=== PATIENT | male | born 1960 | race Caucasian/White ===

== ENCOUNTER 2020-01-22 10:51 | Outpatient (CLI) | payer OTHER ==
--- NOTE | 2020-01-22 11:54 | SLEEP CARE CONSULTATION ---
Information from patient questionnaire entered by Kassandra Izaguirre. I have reviewed and concur with the information entered by Kassandra Izaguirre. This document represents the service I personally performed and the decisions made by me, Laina Martinez, RN, MSN, HEMODIALYSIS TECHNICIAN. History of Present Illness Service Date and Time: 01/22/2020 1051 Reason for Visit: New patient, Previously diagnosed sleep apnea (mild AHI - 7), sleep apnea on CPAP therapy Chief Complaint: reports: Other (follow up to referral - new to area about 7 months and here to establish care) Duration of Symptoms: 10 years Usual bedtime: 8:30 pm Time it takes to fall asleep: 30 mins Snores at night: Yes (without CPAP ) Observed to quit breathing while asleep: No Sleeps alone due to snoring: No Number of times waking at night: 1 Reasons for waking at night: reports: Pain (back pain -intermittent ), Other (position change ) Toss, Turn, or Twitch while sleeping: No Recalls having dreams: No Usually gets out of bed at: 6 am Feels refreshed in the morning: Yes Morning headache: No Sleepy or fatigued during the day: Yes (rarely / once every few months ) Ever fallen asleep while driving: No Takes day naps: Yes (sometimes on days off ) Dreams during day naps: No Prior sleep studies: Yes Year and Where: 2012 [facility] - Parasomnia Symptoms Ever been unable to move upon waking from sleep: No Walks in sleep: No Talks in sleep: No Ever acted out dreams in sleep: No Ever felt weak in the knees when startled or emotional: No Bothered by creepy, crawly, restless sensations in legs: No Problems with memory or concentration: No CPAP Compliance Data - Data Reviewed with Patient Average duration of nightly device use: 8.5 Compliance rate %: 92.8 (180 days) Current pressure setting (cmH2O): 7 Humidity settin Heated hose settin Average residual AHI: 7.5 Central apnea: 1.8 Obstructive apnea: 1.7 Hypopnea: 4.0 Average large leak: 0 Subjective Patient concerns: reports: other (increased noise of device disturbing spouse ). denies: aerophagia, mask discomfort, air blowing in eyes, mask leak noise, condensation in mask/hose, nasal congestion, dry mouth, nose, throat, epistaxis Observed to snore while using device: Yes (rare) Current pressure setting perceived as: comfortable On therapy, patient: reports: sleeping better, awakening more refreshed, being more awake and alert during the day, more rested overall. denies: drowsiness while driving Initial [place] Sleepiness Scale score: 3 (in 2020) Past Medical History Past Medical History: reports: GERD Social History The patient's occupation is a [employer] PROVID[employer]. Patient is and lives in [place]. Have you smoked in the past 12 months: No Alcohol use: Yes Alcohol amount and frequency: 1-2 glasses of wine nightly Caffeine use: Yes Caffeine amount and frequency: 2 cups in morning Family History Family history of sleep disordered breathing: Yes Family Hx Sleep Apnea: Mother: Sleep apnea - Treated, Sibling: Sleep apnea - Treated Allergies and Home Medications Known drug allergies: No Home medication list reviewed: Yes Allergy and home medication list: Omeprazole 20mg daily Review of Systems Weight gain over past 5 years: 5 Cardiovascular: denies: high blood pressure, palpitations, chest pain, irregular heart rate or pulse, leg or foot swelling, have to sleep sitting up, other Respiratory: denies: shortness of breath, wheeze, sputum production, chronic cough, other Gastrointestinal: reports: heartburn. denies: difficulty swallowing, nausea, vomitting, diarrhea, abdominal pain, other Urinary: denies: incontinence, frequency, urgency, impotence, other Neurological: denies: headaches, seizure, head trauma, disorientation, speech dysfunction, gait or balance problems, fainting or unconsciousness, other Psychiatric: denies: Attention Deficit Hyperactivity, anxiety, depression, mood disorder, claustrophobia, other Ear/Nose/Throat: denies: nasal congestion, sinus problems, nose bleeds, dry mouth/throat, hoarseness, injury to nose, tonsillectomy, wisdom teeth removed, other Endocrine: denies: thyroid disease, history of goiter, sluggishness, too hot or cold, excessive thirst, increased appetite, increased urination, unexplained weakness, other Musculoskeletal: reports: joint pain (hands with yard work ), back pain (intermittent). denies: neck pain, joint swelling, muscle pain or cramping, mobility problems, other Immunologic: denies: sneezing, rash, itching, allergies to food or environment, other Physical Exam Heart Rate: 80 O2 Saturation: 97 Height: 5 ft 5 in Weight: 185 lb 9.6 oz Body Mass Index: 30.9 BMI Classification: Obese Neck circumference: 17.25 HEENT: No craniofacial malformation Nostrils: patent to airflow Turbinates: normal Septum: midline Mouth and throat: narrow oropharynx Soft palate: long Hard palate: normal Uvula visualization: 0% Mallampati Class IV Tongue: normal in size Chin and jaw: normal size and position Heart: regular rate and rhythm Lungs: clear bilaterally Extremities: no edema or clubbing Impression and Plan 1. Obstructive Sleep Apnea-Hypopnea Syndrome, mild as previously diagnosed in 2013 in [place]. He has good treatment compliance and slightly elevated residual apnea. On CPAP therapy, the patient has better sleep quality and is more rested overall and he is pleased with benefit of treatment. The patients pressure will be changed to autoCPAP 8-9 cmH20 For elevation of residual AHI. Patient advised to contact me if pressure change is uncomfortable so that it can be adjusted. Goals for apnea control discussed. He also needs a updated device due to increased noise of machine disturbing spouse sleep. Since his CPAP is over 7 years old and of reasonable use so I will update his device and transfer to DME of choice. Discharge staff will inform him of his DME choices. After further discussion, it was noted that he did not go to a sleep center for initial evaluation of his apnea but instead saw his PCP. If documentation of medical visit prior to sleep study can not be obtained by DME or does not meet protocol of DME , he may need to repeat sleep study to obtain CPAP supplies. A sleep order was written in case needed. His physical exam of long soft palate and Mallapatti IV visualization with his obesity continues to show risk of apnea. Currently patients BMI is 30.9 obesity class Obese. Obesity increases the risk of apnea, CPAP pressure requirements and overall health risks especially cardiovascular and diabetes. Thus patient is advised to lose weight. Weight loss can be done with reducing portion size, reducing refined foods and balancing content with vegetables, fruit and protein. In addition tracking food intake will allow awareness of how to modify diet to achieve weight loss goals. Also eating more slowly will allow more awareness of food intake and enjoyment of food while assisting patient to modify intake at each meal. A diet consultation can be helpful in achieving optimal weight loss goals. The BMI chart was reviewed. Patient gained some weight with reduction of exercise in gym. Patient encouraged to discuss their weight loss goals with their PCP and consider a referral to a central service tech. The patient's CPAP pressure range should accommodate some weight loss. Symptoms to report for additional pressure adjustment discussed. Patient's apnea severity and rationale for treatment to reduce apnea, improve sleep quality and reduce cardiovascular and cerebrovascular events was reviewed. Questions answered re Covid 19 precautions. * Update CPAP * Change auto CPAP pressure to 8-9 cmH2O * Notify me if snoring with mask or feeling that the pressure is too much or too little * Attempt to lose weight * Call this office if any problems using CPAP * Repeat sleep study if needed for updating equipment. * Return for follow up 5-6 weeks , or sooner if concerns arise Visit Type: In Office Time Spent with Patient (minutes): 40 Provider Statement: I spent 100% of the Face to Face Visit with the patient with greater than 50% spent counseling the patient and coordination of care.
== END 2020-01-22 10:52 | disposition home or self-care (01) ==
LOC: SC 10:51
PROVIDERS: ATTEND Nurse Practitioner Family
DX: G47.33 Obstructive sleep apnea (adult) (pediatric) (principal); E66.9 Obesity, unspecified; Z68.30 Body mass index [BMI] 30.0-30.9, adult
CPT/HCPCS: 99204; 99212

== ENCOUNTER 2020-02-25 19:21 | Outpatient (CLI) | payer OTHER | END 2020-02-25 19:22 | disposition home or self-care (01) | LOC: SC 19:21 | PROVIDERS: ATTEND Internal Medicine Pulmonary Disease | DX: G47.61 Periodic limb movement disorder (principal) | CPT/HCPCS: 95810 ==

== ENCOUNTER 2020-03-04 13:13 | Outpatient (CLI) | payer OTHER ==
[2020-03-04 14:22] VITALS: BP 118/84
--- NOTE | 2020-03-04 14:22 | SLEEP CARE CONSULTATION ---
Information from patient questionnaire entered by Kassandra Izaguirre. I have reviewed and concur with the information entered by Kassandra Izaguirre. This document represents the service I personally performed and the decisions made by me, Laina Martinez RN, MSN, [employer]. History of Present Illness Service Date and Time: 03/04/2020 1313 Initial [place] Sleepiness Scale score: 3 (in 2019) Current [place] Sleepiness Scale score: 2 Additional HPI information: SHOSHANA HUDSON JR returns for follow up and results of the recently performed polysomnography. I explained the pathophysiology behind obstructive sleep apnea. Patient does not have significant sleep disordered breathing but has elevated AHI in supine position so advised positional therapy. Methods to achieve positional management therapy were discussed; such as, positioning with pillows, wearing a T-shirt with tennis balls sewn into the back, Rematee shirt, Zzomba belt and Slumberbump belt. Pamphlets provided on how to obtain the commercially available products.Weight gain could increase the risk of developing sleep apnea in the future. I strongly encouraged the patient to continue lose weight. Patient has mild snoring. Snoring can be reduced by weight loss. Weight loss is best achieved with diet consult. Patient instructed to contact PCP for referral. Snoring can also be treated with an oral appliance from a dentist. Advised to check insurance coverage. In addition, an ENT evaluation can be do to see if other treatment is indicated. Patient counseled not drink alcohol less than 4 hours before bedtime as it can increase snoring and apnea. Patient was cautioned about risks of drowsy driving until sleepiness symptoms resolve. Patient denies drowsy driving. Sleep Study - Results Type of Sleep Study: Polysomnography Polysomnography/Home Sleep Study results: The quality of the study is good. The patient had normal sleep efficiency. The sleep architecture was normal as well. Respiratory monitoring showed no significant sleep disordered breathing (AHI = 3.7) or hypoxia (artur oxygen saturation of 88%). The few respiratory events occurred almost exclusively during supine sleep (supine AHI = 9.0; non-supine = 2.19). Snore was light in intensity. There was moderate periodic leg movement of sleep not associated with sleep fragmentation. Cardiac rhythm was normal sinus rhythm with occasional premature ventricular contractions. No abnormal behavior (parasomnia) observed during the night. Allergies and Home Medications Known drug allergies: No Home medication list reviewed: No (no changes) Review of Systems Review of systems same as previous: Yes Physical Exam Blood Pressure: 118/84 Cuff size: long Heart Rate: 67 O2 Saturation: 97 Height: 5 ft 5 in Weight: 183 lb 3.2 oz Body Mass Index: 30.4 BMI Classification: Obese Impression and Plan 1. Snoring, light in intensity, but no significant sleep disordered breathing except on his back with an AHI of 9 supine. Patient is currently using CPAP and had a sleep study to re-qualify to update his CPAP equipment as unable to obtain previous sleep study results from previous study in 2013. Patient advised to continue working on weight loss nathalie reduce snoring as well as apnea risk. Other methods such as an oral appliance and ENT evaluation were discussed. After further discussion patient will try positional therapy instead of CPAP. He will return in the next 1-2 months to see if effective. If not effective in controlling sleepiness symptoms , then another sleep study will be completed in supine position for further evaluation to see if further treatment indicated. 2. Periodic limb movement, moderate, that did not fragment patients sleep. Periodic limb movement of sleep (PLMS) is characterized by episodes of repetitive limb movements that occur during sleep and usually involve the lower limbs. The etiology is unknown but can be associated with restless leg syndrome (RLS), neuropathy, spinal cord diseases, kidney disease, rheumatological disorders, narcolepsy, obstructive sleep apnea, and REM sleep behavior disorder. Other factors that can increase PLMS and/or RLS are heredity and iron deficiency as reflected by a low serum ferritin level below 50 to 75mcg / L. Several medications can precipitate or aggravate PLMS such as selective serotonin re- uptake inhibitor antidepressants, tricyclic antidepressants, lithium, and dopamine receptor antagonists with the exception of bupropion. Caffeine can also aggravate PLMS and should be avoided. Sleep hygiene methods can also improve sleep as well as lifestyle changes such as regular exercise. Patient was advised that no treatment is needed at this time. If symptoms increase, then further evaluation is indicated. * Positional management * Continue to lose weight * Avoid alcohol consumption near bedtime * The patient is cautioned about driving until sleepiness is completely resolved. * Return in 1-2 months for follow up. I will response compliance at that time. Visit Type: In Office Provider Statement: I spent 100% of the Face to Face Visit with the patient with greater than 50% spent counseling the patient and coordination of care.
== END 2020-03-04 13:14 | disposition home or self-care (01) ==
LOC: SC 13:13
PROVIDERS: ATTEND Nurse Practitioner Family
DX: R06.83 Snoring (principal); G47.61 Periodic limb movement disorder; E66.9 Obesity, unspecified; Z68.30 Body mass index [BMI] 30.0-30.9, adult
CPT/HCPCS: 99212; 99213